=== PATIENT | female | born 1980 | race Caucasian/White ===

== ENCOUNTER 2025-04-13 09:21 | Outpatient (OUT) | payer OTHER, SELFPAY ==
--- OUTSIDE RECORDS SUMMARY | 2025-04-01 11:45 | XMS_ITS ---
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 Medications Medication SIG (Take, Route, Frequency, Duration) Notes Start Date End Date Status Pen Kahlotus 31G X 6 MM 1 needle weekly; Duration : 30 days 5ActivebusPIRone HCl 15 MG1 tablet Oral 3 times a day; Duration: 30 daysActivelamoTRIgine 200 MGTAKE 1 TABLET BY MOUTH AT BEDTIME Oral; Duration: 30 DaysActiveZolpidem Tartrate 10 MG1 tablet at bedtime as needed Oral Once a day; Duration: 30 daysActiveWegovy 0.25 MG/0.5ML0.5 mL Subcutaneous weekly; Duration: 30 days5ActiveLurasidone HCl 40 MGTAKE 1 TABLET BY MOUTH EVERY EVENING WITH FOOD (at least 350 calories) Oral; Duration: 30 DaysActiveLORazepam 0.5 MG TAKE 1 TABLET BY MOUTH THREE TIMES DAILY Oral; Duration: 30 DaysActiveLORazepam 1 MGTAKE 1 TABLET BY MOUTH THREE TIMES DAILY Oral; Duration: 30 DaysActive Social History Tobacco Use: Social History Observation Description Date Details (start date - stop date) Unknown Sex Assigned At : Social History Observation Description Sex Assigned At Female Tobacco Use/Smoking Question Answer Notes Tobacco use: Uses tobacco in other forms p atient entered data CAGE-AID Questionnaire (2018 Edition) Question Answer Notes Have you ever felt that you ought to cut down on your drinking or drug use? No patient entered data Have people annoyed you by c riticizing your drinking or drug use? No patient entered data Have you ever felt bad or gu ilty about your drinking or drug use? No patient entered data Have you ever had a drink or used drugs first thing in the morning to steady your nerves or to get rid of a hangover? No patient entered data CAGE-AID Score 0 InterpretationNegativePRAPARE Question Answer Notes Date Completed/Updated: 04/01/2025 mitch nt entered data What is your current housing situation? I have housing patient entered data Are you worried about losing your housing? No patient entered data What is the highest level of school that you have finished? I choose not to answer this question patient entered data What is your current work situation? I choose not to answer this question patient entered data In the past year, have you o r any family members you live with been unable to get any of the following when it was really needed? Check all that apply I choose not to answer this question Has lack of transportation kept you from medical appointments, meetings, work or from getting things needed for daily living?I choose not to answer this question How often do you see or talk to people that you care about and feel close to? (For example: talkingto friends on the phone, visiting friends or family, going to adventism or club meetings)More than 5 times a weekpatient entered dataHow stressed are you? Stress is when someone feels tense, nervous, anxious, or can't sleep at nightbecause their mind is troubledNot at allpatient entered dataIn the past year have you spent more than 2 nights in a row in a custodial, assisted, jail center, orjuvenile correctional facility?Nopatient entered dataAre you a refugee?Nopatient entered dataWhat country are you from?[place] patient entered dataDo you feel physically and emotionally safe where you currently live?Yespatient entered dataIn the past year, have you been afraid of your partner or ex-partner?Nopatient entered dataPRAPARE Score:1 Problems Problem Type SNOMED Code ICD Code Onset Dates Problem Status W/U Status Risk Notes Problem Obesity (903648648) Obesity (E66.9) Activeconfirmed Vital Signs Temperature 97.8 degrees Fahrenheit 04/01/20 25 Weight 162 lbs 04/01/2025 Height 61.50 in 04/01/2025 Blood pressure systolic 107 mm Hg 04/01/20 25 Blood pressure diastolic 73 mm Hg 025 Heart Rate 105 /min 04/01/2025 Respiratory Rate 18 /min 04/01/2025 Oximetry 97 % 04/01/2025 Weight-kg 73.48 kg 04/01/2025 Height-cm 156.21 cm 04/01/2025 Kiki Malik 04/01/2025 03:34:41 PM EDT > Encounters Encounter Location Date Provider Diagnosis [address] [id number] 04/01/2025 Zayda Bynum Obesity E66.9 ; Screening for thyroid disorder Z13.29 and Screening for diabetes mellitus Z13.1 Assessments Encounter Date Diagnosis (ICD Code) Assessment Notes Treatment Notes Treatment Clinical Notes Section Notes 04/01/2025 Obesity (ICD-10 - E66.9) Harmful effects of obesity on the human body were discussed with the patient today. Interventions to lose weight were discussed including eating a healthy, balanced diet and increasing activity level by engaging in exercise atleast 60 minutes x atleast 5 days a week. I will start her on GLP1 agonists today. Discussed effects and SE of the meds and PVU and is willing to try. Advised to increase hydration, resistance training and increase protein intake to avoid side effects from GLP1 agnoists and PVU f/up in 1month 04/01/2025Screening for thyroid disorder (ICD-10 - Z13.29)04/01/2025Screening for diabetes mellitus (ICD-10 - Z13.1) Plan Of Treatment Medication Medication Name Sig Start Date Stop Date Notes Pen Kahlotus 31G X 6 MM 1 needle weekly; Duration: 30 d ays 04/01/2025 Wegovy 0.25 MG/0.5ML0.5 mL Subcutaneous weekly; Duration: 30 days04/01/2025 Treatment Notes Assessment Notes Obesity Harmful effects of obesity on the human body were discussed with the patient today. Interventions to lose weight were discussed including eating a healthy, balanced diet and increasing activity level by engaging in exercise atleast 60 minutes x atleast 5 days a week. I will start her on GLP1 agonists today. Discussed effects and SE of the meds and PVU and is willing to try. 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1980???Age: 44 Y???Sex:FemaleDate:04/01/2025Phone:[phone]:[address] [place], [place] [id number] Subjective: * Chief Complaints: * N p-weight loss * HPI: ???Depression screening:?PHQ-9?Little interest or pleasure in doing things Several days patient entered data ?Feeling down, depressed, or hopeless?Several days patient entered data ?Trouble falling or staying asleep, or sleeping too much?Not at all patient entered data ?Feeling tired or having little energy?Not at all patient entered data ?Poor appetite or overeating?Not at all patient entered data ?Feeling bad about yourself or that you are a failure, or have let yourself or your family down?Not at all patient entered data ?Trouble concentrating on things, such as reading the newspaper or watching television?Not at all patient entered data ?Moving or speaking so slowly that other people could have noticed; or the opposite, being so fidgety or restless that you have been moving arounda lot more than usual?Not at all patient entered data ?Thoughts that you would be better off orof hurting yourself in some way?Not at all patient entered data ?Total Score?2 ?Interpretation?Minimal Depression ???Interim History:?A 44 year old is here for weightloss medication. Patient states she has tried diets without success. Patient has not tried exercising. She is concerned that maybe her psych medications are causing weight gain, she talked to psych and they think she should start a GLP-1. Patient states that she feels like she controls her portions and does not eat super unhealthy but is still unable to lose weight. * ROS: ???Positive and negative as described above in the HPI. 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 Tonsillectomy and adenoidectomy * Hospitalization/Major Diagno stic Procedure: s ee surgical hx * Family History: F ather: alive, diagnosed with Hypertension. M other: alive. P aternal Grand Father: . P aternal Grand Mother: , diagnosed with Heart Disease. M aternal Grand Father: , diagnosed with Heart Disease. M aternal Grand Mother: , diagnosed with Heart Disease. B rother: alive, Anxiety, Depression, Bipolar. 1 brother(s) . . * Social History: ???[facility] Demographics:?Primary [facility] Questions?Do you have any barriers to learning??None patient entered data ?What is your preferred method of learning? Watching a video patient entered data ?How often do you need to have someone help you read instructions??Never patient entered data ???Tobacco Use:?Tobacco Use/Smoking?Tobacco use:?Uses tobacco in other forms patient entered data ???Drugs/Alcohol/Caffeine:?CAGE-AID Questionnaire (2018 Edition)?Have you ever felt that you ought to cut downon your drinking or drug use??No patient entered data ?Have people annoyed you by criticizing your drinking or drug use??No patient entered data ?Have you ever felt bad or guilty about your drinking or drug use??No patient entered data ?Have you ever had a drink or used drugs firstthing in the morning to steady your nerves or to get rid of a hangover??No patient entered data ?CAGE-AID Score?0 ?Interpretation?Negative ???Social Determinants:?PRAPARE?Date Completed/Updated:?04/01/2025 patient entered data ?What is your current housing situation??I have housing patient entered data ?Are you worried about losing your housing? No patient entered data ?What is the highest level of school that you have finished??I choose not to answer this question patient entered data ?What is your current work situation??I choose not to answer this question patient entered data ?In the past year, have you or any family members you live with been unable to get any of the following when it was really needed? Check all that a pply?I choose not to answer this question ?Has lack of transportation kept you from medical appointments, meetings, work or from getting things needed for daily living??I choose not to answer this question ?How often do you see or talk to people that you care about and feel close to? (For example: talking to friends on the phone, visiting friends or family, going to adventism or club meetings)?More than 5 times a week patient entered data ?How stressed are you? Stress is when someone feels tense, nervous, anxious, or can't sleep at night because their mind is troubled?Not at all patient entered data ?In the past year have you spent more than 2 nights in a row in a custodial, assisted, jail center, or juvenile correctional facility??No patient entered data ?Are you a refugee??No patient entered data ?What country are you from??[place] patient entered data ?Do you feel physically and emotionally safe where you currently live?? Yes patient entered data ?In the past year, have you been afraid of your partner or ex-partner?? No patient entered data ?PRAPARE Score:?1 ???Migrated Social History:?Migrated Social History: Alcohol Use, AttributeTitle: Occasional alcohol use, ProblemStatus: Active, ,Caffeine Use, COMMENTS: daily, ProblemStatus: Active, ,Culture/Language, AttributeTitle: Language barrier, COMMENTS: NO, ProblemStatus: Active, ,Current Control Method, AttributeTitle: None, ProblemStatus: Active, ,Current tobacco use, AttributeTitle: Has been smoking for 7 years, COMMENTS: quit over a year ago--December 2012, restarted vapor cigarettes late November 2014, ProblemStatus: Active, ,Current tobacco use, AttributeTitle: Smokes < 1 packof cigarettes per day, COMMENTS: quit over a year ago--December 2012, restarted vapor cigarettes lateNovember 2014, ProblemStatus: Active, ,Current Work/Study Status, AttributeTitle: Full-time, ProblemStatus: Active, ,Living Situation, AttributeTitle: Lives with spouse, ProblemStatus: Active, ,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 * Medications: T akingLORazepam 1 MG Tablet TAKE 1 TABLET BY MOUTH THREE TIMES DAILY Oral LORazepam 0.5 MG Tablet TAKE 1 TABLET BY MOUTH THREE TIMES DAILY Oral Lurasidone HCl 40 MG Tablet TAKE 1 TABLET BY MOUTH EVERY EVENING WITH FOOD (at least 350 calories) Oral Zolpidem Tartrate 10 MG Tablet 1 tablet at bedtime as needed Oral Once a day busPIRone HCl 15 MG Tablet 1 tablet Oral 3 times a day lamoTRIgine 200 MG Tablet TAKE 1 TABLET BY MOUTH AT BEDTIME Oral Medication List reviewed and reconciled with the patientTaking LORazepam 1 MG Tablet TAKE 1 TABLET BY MOUTH THREE TIMES DAILY Oral Taking LORazepam 0.5 MG Tablet TAKE 1 TABLET BY MOUTH THREE TIMES DAILY Oral Taking Lurasidone HCl 40 MG Tablet TAKE 1 TABLET BY MOUTH EVERY EVENING WITH FOOD (at least 350 calories) Oral Taking Zolpidem Tartrate 10 MG Tablet 1 tablet at bedtime as needed Oral Once a day Taking busPIRone HCl 15 MG Tablet 1 tablet Oral 3 times a day Taking lamoTRIgine 200 MG Tablet TAKE 1 TABLET BY MOUTH AT BEDTIME Oral Medication List reviewed and reconciled with the patient * Allergies: C odeine Sulfate: Itching - Allergyno[Allergies Verified] Objective: * Vitals: T emp:97.8F, Wt:162lbs, Ht: 61.50 in, BMI: Not Taken - Collection Device Broken, BP:107/73mm Hg, HR:105/min, RR:18/min, Pain scale:01-10, Oxygen sat %:97%, Wt- k.48 kg, Ht-cm: 156.21 cm, Body Surface Area: 1.78. Kiki Malik 04/01/2025 03:34:41 PM EDT >. * Examination: ???CQM Exceptions: ?Currently taking Aspirin:?Aspirin Use:?No ???Constitutional: Denies fevers, chills, or fatigue.? Cardiovascular: Heart rhythm is regular, no murmurs noted. Denies chest pain, palpations, or shortness of breath. Respiratory: Lung sounds are clear in all cazares. Denies cough, wheezing, or shortness of breath. Gastrointestinal: Bowel sounds are active. Abdomen is soft, non-distended. Denies abdominal pain, nausea, vomiting, or changes in bowel habits. Genitourinary: Denies dysuria Musculoskeletal: Denies joint pain, muscle aches, or weakness. Neurological: Denies headache, dizziness, numbness, or tingling. Psychiatric: No changes in mood or sleep patterns. Assessment: * Assessment: 1.?Obesity - E66.9 (Primary)???2.?Screening for thyroid disorder - Z13.29&# 160;??3.?Screening for diabetes mellitus - Z13.1??? Plan: * Treatment: Start Wegovy Solution Auto-injector, 0.25 MG/0.5ML, 0.5 mL, Subcutaneous, weekly, 30 days, 4 Pre-filled Pen Syringe, Refills 0;?Start Pen Kahlotus Miscellaneous, 31G X 6 MM, 1 needle weekly, 30 days, 4 Pen Needle, Refills 0.?LAB: LIPID PANEL WITH REFLEX TO DIRECT LDL Notes: Harmful effects of obesity on the human body were discussed with the patient today. Interventions to lose weight were discussed including eating a healthy, balanced diet and increasing activity level by engaging in exercise atleast 60 minutes x atleast 5 days a week. I will start her on GLP1 agonists today. Discussed effects and SE of the meds and PVU and is willing to try. Advised to increase hydration, resistance training and increase protein intake to avoid side effects from GLP1 agnoists and PVU f/up in 1month ??2.?Screening for thyroid disorder?LAB: TSH + FREE T4 PROFILE3.?Screening for diabetes mellitus?LAB: COMPREHENSIVE METABOLIC PANEL WITH GFR * Procedure Codes: 3 078F HTN DIAST BP < 531895G HTN SYST BP < 130 * Follow Up: 4 Weeks (Reason: weight loss) * Billing Information: * Visit Code: 37607 Office visit New. patient 20-29 minutes. Modifiers: SA * Procedure Codes: 3078F HTN DIAST BP < 80. 3074F HTN SYST BP < 130. * Sign off status: Completed true * Provider: Larry Bynum APRN, FNP-C Date: Generated for Printing/Faxing/eTransmitting on:?04/13/2025 09:28 AM EDT History and Physical Notes * HPI (History of Present Illness) CategorySub-CategoryDetailNotesCategory NotesDepression screeningPHQ-9Little interest or pleasure in doing things: Several dayspatient entered dataFeeling down, depressed, or hopeless: Several dayspatient entered dataTrouble falling or staying asleep, or sleeping too much: Not at allpatient entered data Feeling tired or having little energy: Not at allpatient entered dataPoor appetite or overeating: Not at allpatient entered dataFeeling bad about yourself or that you are a failure, or have let yourself or your family down: Notat allpatient entered dataTrouble concentrating on things, such as reading the newspaper or watching television: Not at allpatient entered dataMoving or speaking so slowly that other people could have noticed; or the opposite, being so fidgety or restless that you have been moving around a lot more than usual: Not at allpatient entered dataThoughts that you would be better off or of hurting yourself in some way: Not at allpatient entered dataTotal Score: 2 Interpretation: Minimal Depression Examination CategorySub-CategoryDetailNotesCategory NotesCQM ExceptionsCurrently taking Aspirin:Aspirin Use:: No Constitutional: Denies fevers, chills, or fatigue. Cardiovascular: Heart rhythm is regular, no murmurs noted. Denies chest pain, palpations, or shortness of breath. Respiratory: Lung sounds are clear in all cazares. Denies cough, wheezing, or shortness of breath. Gastrointestinal: Bowel sounds are active. Abdomen is soft, non-distended. Denies abdominal pain, nausea, vomiting, or changes in bowel habits. Genitourinary: Denies dysuria Musculoskeletal: Denies joint pain, muscle aches, or weakness. Neurological: Denies headache, dizziness, numbness, or tingling. Psychiatric: No changes in mood or sleep patterns.
--- OUTSIDE RECORDS SUMMARY | 2025-04-13 09:29 | XMS_ITS | Clinical Summary ---
Author Organization [facility] Address [address] [place] [address] Care Team Providers Care Digital Marketing Associate Name Role Phone Unavailable Primary Care Provider Unavailabl e Social History Tobacco UseTypesPacks/DayYears UsedDateSmoking Tobacco: Never Assessed CommentsUnknownSex and Gender InformationValueDate RecordedSex Assigned at Not on fileLegal EabLezwhh31/15/2023 7:11 PM EDTGender IdentityNot on fileSexual OrientationNot on file Last Filed Vital Signs Vital SignReadingTime TakenCommentsBlood [id number] 12:00 PM EDT Pulse--Temperature--Respiratory Rate--Oxygen Saturation--Inhaled Oxygen Concentration--Xfhowr97.4 kg (142 lb)01/16/2022 12:00 PM FOEIwdvcr641.9 cm (5' 1 )01/16/2022 12:00 PM EDTBody Mass Index26.8301/16/2022 12:00 PM EDT Plan of Treatment Not on file
--- OUTSIDE RECORDS SUMMARY | 2025-04-13 09:29 | XMS_ITS | Clinical Summary ---
Author Organization [facility] Address [address] [place], [place] [id number] Care Team Providers Care Sterilization Tech Name Role Phone [place] Alejandre, Greyson MC Primary Care Provider + Allergies Active AllergyReactionsCriticalityNoted LwimClggwgziJglozdlNrspbok05/14/2014 Medications MedicationSigDispense QuantityRefillsLast FilledStart DateEnd DateStatus ALPRAZolam (XANAX) 0.5 mg tablet Take 0.5 mg by mouth as needed.Active estradiol (ESTRACE) 2 mg tablet Take 3 tablets by mouth daily as directed by 90 tablet Active progesterone 50 mg/mL injection Inject 1cc intramuscularly daily as directed by 3 Vial Active methylPREDNISolone (MEDROL) 16 mg tablet Take 1 tablet by mouth once daily. 4 tablet 10/29/2016Active doxycycline monohydrate 100 mg tablet Take 1 tablet by mouth twice daily as directed by 8 tablet 10/29/2016Active Active Problems ProblemNoted DateDiagnosed DateFemale bsboyfeyqgi61/24/2014Chronic salpingitis and jxywyuosil03/19/2014 Family History Medical HistoryRelationCommentsmental health issuesBrother1 brotherHypertension Fatherlung cancerMaternal GrandfatherdepressionMaternal GrandmotherhealthyMother HeartPaternal Grandfatherpulmonary issuesPaternal GrandfatherHypertension Paternal Grandmotherheart issuesPaternal GrandmotherRelationStatusComments BrotherAliveFatherAliveMaternal GrandfatherAliveMaternal GrandmotherAliveMother AlivePaternal GrandfatherAlivePaternal GrandmotherDeceased Social History Tobacco UseTypesPacks/DayYears UsedDateSmoking Tobacco: FormerCigarettesQuit: 10/28/2012Smokeless Tobacco: NeverAlcohol UseStandard Drinks/WeekCommentsYes0 (1 standard drink = 0.6 oz pure alcohol)sociallyCommentsNoSex and Gender InformationValueDate RecordedSex Assigned at BirthNot on fileLegal SexFemale 10/13/2013 9:09 AM EDTGender IdentityNot on fileSexual OrientationNot on file Last Filed Vital Signs Vital SignReadingTime TakenCommentsBlood Pdovdnfy022/8005 8:14 AM EDT Mbrhk80744/15/2017 8:14 AM OZYIzejxmakkge97.2 ??C (99 ??F)02/04/2014 11:10 AM EDTRespiratory Dosm436402/04/2014 12:00 PM EDTOxygen Kwgyppxube14%02/04/2014 12:00 PM EDTInhaled Oxygen Concentration--Ycihrz66.8 kg (145 lb)10/29/2016 8:14 AM EDT Jhacaa536.9 cm (5' 1 )10/29/2016 8:14 AM EDTBody Mass Index27.405 8:14 AM EDT Plan of Treatment Health MaintenanceDue DateLast DoneCommentsAnxiety Hiehqrfor12/14/1999Depression Uhndcdagt48/14/1999HIV Cufaaxrpp18/14/1999Hepatitis C Yhtacrlsw32/14/1999 DTaP,Tdap,Td Vaccine (1 - Tdap)11/29/1999Hepatitis B Vaccine (1 of 3 - 19+ 3- dose series)11/29/1999HPV Vaccine (1 - 3-dose SCDM series)11/29/2007Cervical Cancer Qzjbgpbjv92, 12/15/2013Mammogram Dhynirhtf93/14/2021 Covid-19 Vaccine (2024- season)2025Influenza Vaccine (#1)2025 Procedures Procedure NamePriorityDate/TimeAssociated DiagnosisCommentsPAP FLUID CERVICAL XUKLXIRILTiwniqx31/01/2014 1:56 PM EDT Screening from Last 3 Months or Most Recently Relevant to Health Maintenance Results * PAP FLUID CERVICAL SCREENING (12/15/2013 1:56 PM EDT)ComponentValueRef Range Test MethodAnalysis TimePerformed AtPathologist SignatureTranscription Specimen #: [id number] Submitting Physician: PENNY MASON CNP SPECIMEN SUBMITTED A: CERVICAL,SCREENING, FLUID FINAL DIAGNOSIS A. CERVICAL,SCREENING, FLUID Satisfactory for interpretation. Negative for intraepithelial lesion or malignancy. This specimen has been analyzed by the ThinPrep Imaging System, an automated imaging and review system, which assists the laboratory in evaluating cells on ThinPrep Pap tests. ??Following automated imaging, selected cazares from every slide are reviewed by a roofing technician. MEERA Gonzalez(ASCP) ? (Electronic Signature) CLINICAL DATA ROUTINE EXAM Date of Last Menstrual Period: 11/27/13 Additional Testing: Reflex HPV testing for ASCUS STAINS A: ??CERVICAL,SCREENING, FLUID ? 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 False negative results occur with all screening tests, emphasizing the need for rescreening at recommended intervals, and clinical correlation.CYTOLOGYSpecimen (Source)Anatomical Location / LateralityCollection Method / VolumeCollection TimeReceived TimeSpecimen from uterine cervix (specimen)CERVICAL / Unknown 12/15/2013 1:56 PM EDT12/16/2013 5:45 AM EDT Narrative Authorizing ProviderResult TypeResult StatusPenny June CNPCYTOLOGYFinal ResultPerforming OrganizationAddressCity/State/ZIP CodePhone Number CYTOLOGY from Last 3 Months or Most Recently Relevant to Health Maintenance Care Teams Team MemberRelationshipSpecialtyStart DateEnd Greyson Brink Sr., PCP - GeneralFamily Medicine10/13/13
[2025-04-13 13:43] LABS: Alanine Aminotransferase 31 U/L (14-59); Albumin Globulin Ratio 1.2; Albumin Level 4.3 g/dL (3.4-5.0); Alkaline Phosphatase 88 U/L (46-116); Anion Gap 15.5; Aspartate Amino Transferase 23 U/L (15-37); Blood Urea Nitrogen 15.0 mg/dL (7.0-18.0); Calcium 9.3 mg/dL (8.5-10.1); Carbon Dioxide 23.7 mmol/L (21.0-32.0); Chloride 101 mmol/L (98-107); Cholesterol 221 mg/dL (<=200); Estimated GFR (African America >60 (>=60 mL/min/1.73m^2); Estimated GFR (Non-African Ame 60 (>=60 mL/min/1.73m^2); Globulin 3.6 g/dL; Glucose 87 mg/dL (74-106); HDL Cholesterol 49 mg/dL (40-60); Potassium 4.2 mmol/L (3.5-5.1); Sodium 136 mmol/L (136-145); Thyroid Stimulating Hormone 1.099 uIU/mL (0.358-3.740); Total Protein 7.9 g/dL (6.4-8.2); Triglycerides 84 mg/dL (<=150); VLDL CHOLESTEROL 16.8 mg/dL
== END 2025-04-13 09:22 | disposition home or self-care (01) ==
LOC: LAB 09:26
DX: E66.9 Obesity, unspecified (principal); Z13.29 Encounter for screening for other suspected endocrine disorder; Z13.1 Encounter for screening for diabetes mellitus
CPT/HCPCS: 36415; 80053; 80061; 84439; 84443